=== PATIENT | male | born 1995 | race Asian ===

== ENCOUNTER 2016-09-22 02:51 | Emergency (ER) | payer OTHER ==
[~2016-09-22] VITALS: Ht 170.2 cm; Wt 72.6 kg
[~2016-09-22 02:51] MED LIST: AC325T PO; BENZ200C25 PO; DM/P295L13 PO; FEXO1TAB42 PO; FLT05NA16 NSEACH; HYDR-3063 PO; HYDR-757 PO; HYOS0.1217 PO; IBUP800T26 PO; METH4TAB PO; ONDA-42 SL; ONDA4TAB11 PO; PNT40TEC PO; PRD20T PO; PRM25T PO; [UNRECOGNIZED DRUG - REMARK]
[2016-09-22] MEDS ORDERED: ONDANSETRON 4 MG (ZOFRAN) ORAL DISSOLVE TAB PO ONE (03:15)
[2016-09-22] MEDS ORDERED: HYOSCYAMINE 0.125 MG (LEVSIN) TAB PO ONE (03:15)
[2016-09-22] MEDS ORDERED: LIDOCAINE 2% VISCOUS 15 ML UDC PO ONE (03:15)
[2016-09-22] MEDS ORDERED: ANTACID SUSP 30 ML UDC (MYLANTA) PO ONE (03:15)
[2016-09-22 03:35] LABS: BASOPHILS % (AUTO) 0 % (0-10); EOSINOPHILS # (AUTO) 0.2 10^3/uL (0.0-0.3); EOSINOPHILS % (AUTO) 3 % (0-10); LYMPHOCYTES # (AUTO) 2.5 X 10^3 (1.0-4.0); LYMPHOCYTES % (AUTO) 35 % (12-44); MEAN CORPUSCULAR HEMOGLOBIN 29 PG (25-34); MEAN CORPUSCULAR HGB CONC 34 G/DL (32-36); MEAN CORPUSCULAR VOLUME 85 FL (80-99); MEAN PLATELET VOLUME 12.9 FL (7.4-10.4); MONOCYTES # (AUTO) 0.7 X 10^3 (0.0-1.0); MONOCYTES % (AUTO) 10 % (0-12); NEUTROPHILS # (AUTO) 3.7 X 10^3 (1.8-7.8); NEUTROPHILS % (AUTO) 53 % (42-75); PLATELET COUNT 195 10^3/uL (130-400); RED CELL DISTRIBUTION WIDTH 13.2 % (10.0-14.5); WHITE BLOOD COUNT 7.1 10^3/uL (4.3-11.0)
[2016-09-22] MEDS ORDERED: LACTATED RINGERS 1,000 ML IV ONE (03:43)
[2016-09-22] MEDS ORDERED: KETOROLAC 30 MG/ML VIAL IVP ONE (03:45)
[2016-09-22] MEDS ORDERED: ONDANSETRON 4 MG/2 ML (SDV) Z0FRAN IVP ONE (03:45)
--- NOTE | 2016-09-22 04:00 | ED Abdominal Pain ---
General Chief Complaint: Abdominal/GI Problems Stated Complaint: ABD PAIN Nursing Triage Note: PT TO ED 7 W/ C/O EPIGASTRIC PAIN ONSET 3HRS AGO AFTER EATING [employer]. C/O NAUSEA BUT DENIES VOMITING Sepsis Screen: No Definite Risk Source of Information: Patient History of Present Illness Time Seen By Provider: 03:15 Initial Comments PT C/O EPIGASTRIC AND RUQ PAIN X HOURS STATES PAIN BEGAN SHORTLY AFTER HE ATE NAKED [employer] [place] AT [employer] [facility]. C/O SEVERE UPPER ABDOMINAL CRAMPING AND SHARP PAIN C/O NAUSEA, NO VOMITING NO DIARRHEA NO FEVER NO URINARY SYMPTOMS PT STATES NO RELIEF WITH TYLENOL AND IBUPROFEN-STATES THOSE MEDS ALWAYS TAKE HIS PAIN AWAY, INCLUDING WHEN HE HAS "GERD" STATES HE HAS HAD MILDER SYMPTOMS IF HE EATS TOO MUCH, BUT NEVER THIS BAD [facility] Allergies and Home Medications Allergies Coded Allergies: No Known Drug Allergies (Unverified , 09/11/13) Home Medications Hyoscyamine Sulfate 0.125 Mg Tab.subl #10 1-2 TAB SL Q4H Prescribed by: DAVID BRYANT on 09/22/16 0503 Ondansetron 4 Mg Tab.rapdis #8 4 MG PO Q6H PRN PRN NAUSEA/VOMITING Prescribed by: DIETER LR on 11/19/15 0400 Ondansetron 4 Mg Tab.rapdis #10 4 MG PO Q4H Prescribed by: DAVID BRYANT on 09/22/16 0503 Prednisone 20 Mg Tab #6 40 MG PO DAILY Prescribed by: DEITER LR on 09/28/15 0257 Tramadol HCl 50 Mg Tablet #20 50 MG PO Q4H Prescribed by: DAVID BRYANT on 09/22/16 0503 Review of Systems Constitutional: no symptoms reported Respiratory: No Symptoms Reported Cardiovascular: No Symptoms Reported Gastrointestinal: See HPI Abdominal PainDenies Constipated, Denies Diarrhea, NauseaDenies Poor Appetite, Denies Poor Fluid Intake, Denies Vomiting Genitourinary: No Symptoms Reported Musculoskeletal: no symptoms reported Skin: no symptoms reported Psychiatric/Neurological: No Symptoms Reported Endocrine: No Symptoms Reported Hematologic/Lymphatic: No Symptoms Reported Past Nnxhnsc-Chyvmr-Kpiibb Hx Patient Social History Alcohol Use: Occasionally Uses Recreational Drug Use: No Smoking Status: Never a Smoker Former Smoker/When Quit: Oct 16, 2013 Recent Foreign Travel: No Contact w/Someone Who Travel: No Recent Infectious Disease Expo: No Recent Hopitalizations: No Immunizations Up To Date Tetanus Booster (TDap): Less than 5yrs Date of Influenza Vaccine: Jun 26, 2013 Seasonal Allergies Seasonal Allergies: Yes Surgeries HX Surgeries: Yes (RIGHT ACL/MCL REPAIR) Surgeries: Orthopedic, Tonsillectomy Respiratory Hx Respiratory Disorders: No Cardiovascular Hx Cardiac Disorders: No Neurological Hx Neurological Disorders: No Reproductive System Hx Reproductive Disorders: No Sexually Transmitted Disease: No Genitourinary Hx Genitourinary Disorders: No Gastrointestinal Hx Gastrointestinal Disorders: No Musculoskeletal Hx Musculoskeletal Disorders: Yes (RIGHT KNEE SURGERY) Endocrine Hx Endocrine Disorders: No HEENT HX ENT Disorders: No Cancer Hx Cancer: No Psychosocial Hx Psychiatric Problems: No Integumentary HX Skin/Integumentary Disorder: No Blood Transfusions Hx Blood Disorders: No Family Medical History Significant Family History: No Pertinent Family Hx Physical Exam Vital Signs VS - Last 72 Hours, by Label 09/22/16 03:04 Temp 97.1 Pulse 74 Resp 18 B/P 134/80 Pulse Ox 99 O2 Delivery Room Air Capillary Refill : Less Than 3 Seconds General Appearance: WD/WN no apparent distress other (SITTING CALMLY AND TEXTING WHEN I ENTER ROOM. 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 no motor/sensory deficits alert oriented x 3 Skin: normal color warm/dryNo rash Progress/Results/Core Measures Results/Orders Lab Results Laboratory Tests Test 09/22/16 03:29 09/22/16 04:14 Range/Units Alanine Aminotransferase (ALT/SGPT) 43 0-55 U/L Albumin 3.9 3.2-4.5 G/DL Alkaline Phosphatase 97 40-136 U/L Amylase Level 61 25-125 U/L Anion Gap 10 5-14 MMOL/L Aspartate Amino Transf (AST/SGOT) 25 5-34 U/L BUN/Creatinine Ratio 18 Basophils # (Auto) 0.0 0.0-0.1 10^3/uL Basophils (%) (Auto) 0 0-10 % Blood Urea Nitrogen 19 H 7-18 MG/DL Calcium Level 9.1 8.5-10.1 MG/DL Carbon Dioxide Level 25 21-32 MMOL/L Chloride Level 106 98-107 MMOL/L Creatinine 1.04 0.60-1.30 MG/DL Eosinophils # (Auto) 0.2 0.0-0.3 10^3/uL Eosinophils (%) (Auto) 3 0-10 % Estimat Glomerular Filtration Rate > 60 Glucose Level 97 70-105 MG/DL Hematocrit 44 40-54 % Hemoglobin 14.7 13.3-17.7 G/DL Lipase 10 8-78 U/L Lymphocytes # (Auto) 2.5 1.0-4.0 X 10^3 Lymphocytes (%) (Auto) 35 12-44 % Mean Corpuscular Hemoglobin 29 25-34 PG Mean Corpuscular Hemoglobin Concent 34 32-36 G/DL Mean Corpuscular Volume 85 80-99 FL Mean Platelet Volume 12.9 H 7.4-10.4 FL Monocytes # (Auto) 0.7 0.0-1.0 X 10^3 Monocytes (%) (Auto) 10 0-12 % Neutrophils # (Auto) 3.7 1.8-7.8 X 10^3 Neutrophils (%) (Auto) 53 42-75 % Platelet Count 195 130-400 10^3/uL Potassium Level 3.8 3.6-5.0 MMOL/L Red Blood Count 5.10 4.35-5.85 10^6/uL Red Cell Distribution Width 13.2 10.0-14.5 % Sodium Level 141 135-145 MMOL/L Total Bilirubin 0.3 0.1-1.0 MG/DL Total Protein 6.8 6.4-8.2 G/DL White Blood Count 7.1 4.3-11.0 10^3/uL Urine Amorphous Sediment FEW LIAT URATES H /LPF Urine Bacteria TRACE /HPF Urine Bilirubin NEGATIVE NEGATIVE Urine Casts NONE /LPF Urine Clarity CLEAR Urine Color YELLOW Urine Crystals PRESENT H /LPF Urine Culture Indicated NO Urine Glucose (UA) NEGATIVE NEGATIVE Urine Ketones NEGATIVE NEGATIVE Urine Leukocyte Esterase NEGATIVE NEGATIVE Urine Mucus MODERATE H /LPF Urine Nitrite NEGATIVE NEGATIVE Urine Protein 1+ H NEGATIVE Urine RBC NONE /HPF Urine RBC (Auto) NEGATIVE NEGATIVE Urine Specific Mears 1.020 1.016-1.022 Urine Squamous Epithelial Cells 0-2 /HPF Urine Urobilinogen NORMAL NORMAL MG/DL Urine WBC RARE /HPF Urine pH 6.5 5-9 My Orders Orders-DAVID BRYANT DO Antacid Suspension (Mylanta Suspension (09/22/16 03:15) Lidocaine 2% Viscous 15 Ml (Xylocaine Vi (09/22/16 03:15) Hyoscyamine Sl Tablet (Levsin Sl Tablet) (09/22/16 03:15) Ondansetron Oral Dissolve Tab (Zofran (09/22/16 03:15) Saline Lock/Iv-Start (09/22/16 03:21) Ct Abdomen/Pelvis W (09/22/16 03:21) Amylase (09/22/16 03:21) Cbc With Automated Diff (09/22/16 03:21) Comprehensive Metabolic Panel (09/22/16 03:21) Lipase (09/22/16 03:21) Ua Culture If Indicated (09/22/16 03:21) Ketorolac Injection (Toradol Injection) (09/22/16 03:45) Ondansetron Injection (Zofran Injectio (09/22/16 03:45) Saline Lock/Iv-Start (09/22/16 03:43) Lactated Ringers (Lr 1000 Ml Iv Solution (09/22/16 03:43) Iohexol Injection (Omnipaque 350 Mg/Ml 1 (09/22/16 04:15) Ns (Ivpb) (Sodium Chloride 0.9% Ivpb Bag (09/22/16 04:15) Medications Given in ED Current Medications Medications Dose Ordered Sig/Zarina Route Start Time Stop Time Status Last Admin Dose Admin Al Hydrox/Mg Hydrox/Simethicone 30 ml ONCE ONCE PO 09/22/16 03:15 09/22/16 03:17 DC 09/22/16 03:27 30 ML Hyoscyamine Sulfate 0.25 mg ONCE ONCE PO 09/22/16 03:15 09/22/16 03:17 DC 09/22/16 03:27 0.25 MG Iohexol 100 ml ONCE ONCE IV 09/22/16 04:15 09/22/16 04:16 DC 09/22/16 04:10 100 ML Ketorolac Tromethamine 30 mg ONCE ONCE IVP 09/22/16 03:45 09/22/16 03:46 DC 09/22/16 03:50 30 MG Lactated Ringer's 1,000 ml @ 0 mls/hr Q0M ONCE IV 09/22/16 03:43 09/22/16 03:45 DC 09/22/16 03:51 1,000 MLS/HR Lidocaine HCl 15 ml ONCE ONCE PO 09/22/16 03:15 09/22/16 03:17 DC 09/22/16 03:27 15 ML Ondansetron HCl 4 mg ONCE ONCE PO 09/22/16 03:15 09/22/16 03:17 DC 09/22/16 03:27 4 MG Ondansetron HCl 4 mg 4 mg ONCE ONCE IVP 09/22/16 03:45 09/22/16 03:46 DC 09/22/16 03:50 4 MG Sodium Chloride 100 ml ONCE ONCE IV 09/22/16 04:15 09/22/16 04:16 DC 09/22/16 04:11 80 ML Vital Signs/I&O Vital Sign - Last 12Hours 09/22/16 03:04 Temp 97.1 Pulse 74 Resp 18 B/P 134/80 Pulse Ox 99 O2 Delivery Room Air Blood Pressure Mean: 98 Progress Note : Progress Note SYMPTOMS EASED AT TIME OF DISMISSAL Diagnostic Imaging Comments CT ABDOMEN/PELVIS--NO ACUTE PROCESS, PER [facility] VIA FAX @ 2303 Reviewed: Reviewed by Me Departure Impression Impression: Primary Impression: EPIGASTRIC AND RUQ PAIN Disposition: 01 HOME, SELF-CARE Condition: Improved Departure-Patient Inst. Referrals: [facility] (PCP/Family) Primary Care Physician Patient Instructions: Acute Abdomen (Belly Pain), Adult (DC) Add. Discharge Instructions: CALL THIS AM TO ARRANGE FOR OUTPATIENT ABDOMINAL ULTRASOUND NOTHING TO EAT OR DRINK FOR 8 HOURS PRIOR TO EXAM AFTER EXAM, YOU MAY HAVE CLEAR LIQUIDS NO FOOD UNTIL YOUR PAIN IS GONE, THEN START A BRATS DIET--BANANAS, RICE, APPLESAUCE, TOAST, SALTINES FOLLOW UP WITH [facility] TOMORROW FOR FURTHER CARE RETURN TO ER IF WORSE All discharge instructions reviewed with patient and/or family. Voiced understanding. Scripts Tramadol HCl (Ultram)50 Mg Mixpoy99 Mg PO Q4H #20 TAB Prov:DAVID BRYANT DO 09/22/16 Ondansetron (Zofran Odt)4 Mg Tab.rapdis4 Mg PO Q4H Nausea/Vomiting #10 TAB Prov:DAVID BRYANT DO 09/22/16 Hyoscyamine Sulfate (Levsin-Sl)0.125 Mg Tab.subl1-2 Tab SL Q4H Abdominal Pain # 10 TAB Prov:DAVID BRYANT DO 09/22/16 DAVID BRYANT DO Sep 22, 2016 04:00
[2016-09-22 04:02] LABS: ALANINE AMINOTRANSFERASE 43 U/L (0-55); ALBUMIN 3.9 G/DL (3.2-4.5); AMYLASE 61 U/L (25-125); ANION GAP 10 MMOL/L (5-14); ASPARTATE AMINO TRANSFERASE 25 U/L (5-34); BILIRUBIN,TOTAL 0.3 MG/DL (0.1-1.0); BLOOD UREA NITROGEN 19 MG/DL (7-18); BUN/CREATININE RATIO 18; CALCIUM 9.1 MG/DL (8.5-10.1); CARBON DIOXIDE 25 MMOL/L (21-32); CHLORIDE 106 MMOL/L (98-107); CREATININE SERUM 1.04 MG/DL (0.60-1.30); GFR ESTIMATED > 60; GLUCOSE 97 MG/DL (70-105); LIPASE 10 U/L (8-78); POTASSIUM 3.8 MMOL/L (3.6-5.0); SODIUM 141 MMOL/L (135-145); TOTAL PROTEIN 6.8 G/DL (6.4-8.2)
[2016-09-22] MEDS ORDERED: IOHEXOL 350 MG/ML 100 ML (OMNIPAQUE 350) VIAL IV ONE (04:15)
[2016-09-22] MEDS ORDERED: NS 100 ML (IVPB) BAG IV ONE (04:15)
[2016-09-22 04:27] LABS: BILIRUBIN,URINE NEGATIVE (NEGATIVE); KETONES,URINE NEGATIVE (NEGATIVE); LEUKOCYTE ESTERASE ,URINE NEGATIVE (NEGATIVE); NITRITE,URINE NEGATIVE (NEGATIVE); PH,URINE 6.5 (5-9); PROTEIN,URINE 1+ (NEGATIVE); UROBILINOGEN,URINE NORMAL (NORMAL)
[2016-09-22 04:35] LABS: WBC,URINE RARE /HPF
[2016-09-22 04:36] LABS: SQUAMOUS EPITHELIAL CELL,UR 0-2 /HPF
[2016-09-22] MEDS ORDERED: HYOS0.1283 SL (05:03)
[2016-09-22] MEDS ORDERED: ONDA4TAB8 PO (05:03)
[2016-09-22] MEDS ORDERED: TRAM-42 PO (05:03)
[2016-09-22] MEDS ORDERED: RX-TRAMADOL 50 MG (ULTRAM) TAB PPK#4 PO STA (05:06)
[2016-09-22] MEDS ORDERED: RX-TRAMADOL 50 MG (ULTRAM) TAB PPK#4 PO ONE (05:07)
[2016-09-22 05:10] VITALS: BP 111/78
--- NOTE | 2016-09-22 06:30 | Diagnostic Imaging Report ---
PROCEDURE: CT abdomen and pelvis with contrast. TECHNIQUE: Multiple contiguous axial images were obtained through the abdomen and pelvis after administration of intravenous contrast. INDICATION: Postprandial right upper quadrant abdominal pain. Comparison is made to study of 11/06/2013. FINDINGS: There is no focal hepatic or splenic abnormality. Gallbladder, pancreas and adrenal glands are unremarkable in appearance. Kidneys have normal appearances. There is no evidence of free fluid or inflammation. No appendiceal enlargement is seen. Partially opacified urinary bladder is unremarkable. IMPRESSION: No CT evidence of acute abdominal or pelvic abnormality. Dictated by: Dictated on workstation # [id number]
== END 2016-09-22 05:10 | disposition home or self-care (01) ==
LOC: EDUNIT# 02:51 → ER 02:54
DX: R10.13 Epigastric pain (principal); R10.11 Right upper quadrant pain
CPT/HCPCS: 36415; 74177; 80053; 81000; 82150; 83690; 85025; 96361; 96374; 96375

== ENCOUNTER → 2017-06-09 | Outpatient (CLI) | payer OTHER ==
[~2017-06-09] MED LIST changes: +HYOS0.1283 SL; +ONDA4TAB8 PO; +TRAM-42 PO
--- NOTE | 2017-06-09 13:14 | Diagnostic Imaging Report ---
PROCEDURE: US Gallbladder. TECHNIQUE: Multiple real-time grayscale images were obtained over the right upper quadrant in various projections. INDICATION: Right upper quadrant pain. FINDINGS: The pancreas visualized portions appear unremarkable. The liver is fairly homogeneous with no focal lesion seen. The portal vein demonstrates hepatopetal flow. The gallbladder demonstrates no stones or pericholecystic fluid. There is wall thickening seen near the fundus of the gallbladder. This is favored to be related to focal adenomyomatosis. No internal vascularity seen. The sonographic Long sign is reportedly negative. The right kidney is 11.8 cm in length with no hydronephrosis or focal lesion. IMPRESSION: Wall thickening in the fundus of the gallbladder is favored to be related to focal adenomyomatosis. Dictated on workstation # [id number]
== END ==
LOC: RAD 06:49
PROVIDERS: ATTEND Internal Medicine
DX: R10.11 Right upper quadrant pain (principal)
CPT/HCPCS: 76705